=== PATIENT | male | born 1950 ===

== ENCOUNTER 2017-03-15 09:41 | Emergency (ER) | payer BC ==
[2017-03-15] MEDS ORDERED: predniSONE TAB* 20 MG PO ONE (11:51)
--- NOTE | 2017-03-15 11:53 | UC ---
Skin Complaint HPI - HPI Summary HPI Summary: 66 yo male stung by bee right eyebrow yesterday today when he awoke lid was swollen shut has improved since up no rash no trouble breathing - History of Current Complaint Chief Complaint: UCAllergicReaction Time Seen by Provider: 03/15/17 11:46 Stated Complaint: BEE STING Hx Obtained From: Patient Onset/Duration: Sudden Onset Skin Exposure Onset/Duration: Hours Ago Timing: Constant Onset Severity: Mild Current Severity: Mild Pain Intensity: 3 Pain Scale Used: 0-10 Numeric Location: Discrete Character: Swelling, Pain Aggravating: Nothing Alleviating: Cold Associated Signs & Symptoms: Positive: Tenderness. Negative: Nausea, Vomiting, Thirst, Weakness, Difficulty Breathing, Hoarseness, Throat Tightening, Rash Related History: Insect Bite/Sting - Allergy/Home Medications Allergies/Adverse Reactions: Allergies Allergy/AdvReac Type Severity Reaction Status Date / Time Lisinopril Allergy Swelling Verified 03/15/17 09:51 Of Face,Lips,& Throat Review of Systems Constitutional: Negative Skin: Negative Eyes: Negative ENT: Negative Respiratory: Negative Cardiovascular: Negative Gastrointestinal: Negative Genitourinary: Negative Motor: Negative Neurovascular: Negative Musculoskeletal: Negative Neurological: Negative Psychological: Negative All Other Systems Reviewed And Are Negative: Yes PMH/Surg Hx/FS Hx/Imm Hx Endocrine History: Diabetes Cardiovascular History: Hypertension - Surgical History Surgical History: Yes Surgery Procedure, Year, and Place: 2006 Salivary gland drained RIGHT side. [facility] - Family History Known Family History: Positive: Hypertension, Diabetes - Social History Alcohol Use: None Substance Use Type: None Smoking Status (MU): Never Smoked Tobacco Have You Smoked in the Last Year: No Physical Exam Triage Information Reviewed: Yes Appearance: Well-Appearing, No Pain Distress, Well-Nourished Vital Signs: Initial Vital Signs Temp 99.5 F 03/15/17 09:53 Pulse 73 03/15/17 09:53 Resp 16 03/15/17 09:53 BP 134/83 03/15/17 09:53 Pulse Ox 100 03/15/17 09:53 Eyes: Positive: Conjunctiva Clear, Other: - right lid edema ENT: Positive: Hearing grossly normal. Negative: Nasal congestion, Nasal drainage, Trismus, Muffled/hoarse voice Neck: Positive: Supple, Nontender, No Lymphadenopathy Respiratory: Positive: Lungs clear, Normal breath sounds, No respiratory distress, No accessory muscle use Cardiovascular: Positive: RRR, No Murmur Musculoskeletal: Positive: ROM Intact, No Edema Neurological: Positive: Alert Psychological Exam: Normal Skin Exam: Normal Course/Dx - Diagnoses Provider Diagnoses: local reaction to insect sting Discharge - Discharge Plan Condition: Stable Disposition: HOME Prescriptions: Prednisone [Deltasone] 40 mg PO DAILY #4 tab Patient Education Materials: Insect Bite or Sting (ED) Referrals: Satinder Joaquin MD [Primary Care Provider] - Additional Instructions: ice benadryl if needed recheck in 4 days if not better
[2017-03-15 12:02] VITALS: BP 133/78
== END 2017-03-15 12:03 | disposition home or self-care (01) ==
LOC: UCEAST 09:41
DX: T63.441A Toxic effect of venom of bees, accidental (unintentional), initial encounter (principal); R22.0 Localized swelling, mass and lump, head; Y92.9 Unspecified place or not applicable
CPT/HCPCS: 99212; G0463; J7512